=== PATIENT | female | born 1970 | race Two or more races ===

== ENCOUNTER 2018-03-24 12:19 | Observation (INO) | payer OTHER ==
--- NOTE | 2018-03-24 13:29 | PDOC ---
History of Present Illness - General Chief Complaint: Pain Stated Complaint: ABD PAIN Time Seen by Provider: 03/24/18 13:28 - History of Present Illness Initial Comments: 03/24/18 14:54 The patient is a 47-year-old female, with a past medical history of x3 , hypertrigylcerides and prediabetes, who presents to the ED with right lower quadrant pain that began yesterday evening. The patient was not able to stand up this morning due to the pain which prompted her to report to the ED. She denies having these symptoms in the past. She reports taking Naproxen at 5:00 PM yesterday with no relief of her symptoms. Patients last bowel movement was today and it was normal, not dark or bloody. She reports having regular periods and denies being sexually active for the last 2 years. She denies any vaginal discharge or vaginal bleeding. She denies any dysuria or frequency. Denies abd distention. The patient denies any fever, chills, nausea, vomiting, or diarrhea. Denies shortness of breath or chest pain. Allergies: Ketoconazole Past History - Past Medical History Allergies/Adverse Reactions: Allergies Allergy/AdvReac Type Severity Reaction Status Date / Time ketoconazole Allergy Rash Verified 03/24/18 12:37 Home Medications: Ambulatory Orders NK [No Known Home Medication] 05/23/16 COPD: No - Suicide/Smoking/Psychosocial Hx Smoking History: Never smoked Have you smoked in the past 12 months: No Information on smoking cessation initiated: No Hx Alcohol Use: No Drug/Substance Use Hx: No Substance Use Type: None Review of Systems - Review of Systems Comments:: 03/24/18 14:54 GENERAL/CONSTITUTIONAL: No fever or chills. No weakness. HEAD, EYES, EARS, NOSE AND THROAT: No change in vision. No ear pain or discharge. No sore throat. GASTROINTESTINAL: (+)Abdominal pain. No nausea, vomiting, diarrhea or constipation. GENITOURINARY: No dysuria, frequency, or change in urination. CARDIOVASCULAR: No chest pain or shortness of breath. RESPIRATORY: No cough, wheezing, or hemoptysis. MUSCULOSKELETAL: No joint or muscle swelling or pain. No neck or back pain. SKIN: No rash NEUROLOGIC: No headache, vertigo, loss of consciousness, or change in strength/ sensation. ENDOCRINE: No increased thirst. No abnormal weight change. HEMATOLOGIC/LYMPHATIC: No anemia, easy bleeding, or history of blood clots. ALLERGIC/IMMUNOLOGIC: No hives or skin allergy. *Physical Exam - Vital Signs Last Vital Signs Temp Pulse Resp BP Pulse Ox 98.6 F 73 16 103/68 100 03/24/18 12:20 03/24/18 12:20 03/24/18 12:20 03/24/18 12:20 03/24/18 12:20 - Physical Exam Comments: 03/24/18 14:54 GENERAL: Awake, alert, and fully oriented, in no acute distress HEAD: No signs of trauma EYES: PERRLA, EOMI, sclera anicteric, conjunctiva clear ENT: Auricles normal inspection, hearing grossly normal, nares patent, oropharynx clear without exudates. Moist mucosa NECK: Normal ROM, supple, no lymphadenopathy, JVD, or masses LUNGS: Breath sounds equal, clear to auscultation bilaterally. No wheezes, and no crackles HEART: Regular rate and rhythm, normal S1 and S2, no murmurs, rubs or gallops ABDOMEN: (+)Right lower quadrant tenderness to palpation at McBurney's point. Soft, normoactive bowel sounds. No guarding, no rebound. No masses : (+)Mild right adnexal tenderness. No midline or left adnexal tenderness. No cmt. No vaginal discharge or blood in vault. EXTREMITIES: Normal range of motion, no edema. No clubbing or cyanosis. No cords , erythema, or tenderness BACK: No midline spinal tenderness in cervical/thoracic/lumbar region NEUROLOGICAL: Normal speech, cranial nerves intact, negative pronator drift, 5/ 5 strength in all 4 extremities, normal sensation to light touch in all 4 extremities, normal cerebellar exam, normal gait, normal reflexes and tone SKIN: Warm, Dry, normal turgor, no rashes or lesions noted. ED Treatment Course - LABORATORY CBC & Chemistry Diagram: 03/24/18 14:48 03/24/18 14:48 Medical Decision Making - Medical Decision Making 03/24/18 14:19 47yo F hx x3, pre-DM, hypertriglyceride presents to the ED with 24hrs of RLQ pain. Vitals unremarkable. Exam with +mcburney's point ttp, but also mild R adnexal ttp. No CMT or vaginal DC, pt has not been sexually active for 2 years. DDx includes but not limited to appendicitis vs ovarian cyst vs colitis vs enteritis. Plan: -labs -UPT -UA -CTAP -TVUS -pain control -dispo 03/24/18 19:01 Pt was marked in CT scan for 2 hours, however has not been scanned yet. Pt now in CT, to be scanned next. Labs thus far wnl, UA negative, UPT negative. Pt signed out to overnight attending for f/u on diagnostics, and for further management and disposition.
[2018-03-24] MEDS ORDERED: ACETAMINOPHEN 1000 MG/100 ML VIAL (NON FORMULARY) IVPB ONE (14:09)
[2018-03-24] MEDS ORDERED: ACETAMINOPHEN INJECTION 100 ML IVPB ONE (14:38)
[2018-03-24 14:59] LABS: EOS % 3.3 % (0-4.5); HEMATOCRIT 31.2 % (32.4-45.2); HEMOGLOBIN 10.2 GM/dL (10.7-15.3); LYMPH % 25.8 % (8-40); MCH 25.8 pg (25.7-33.7); MCHC 32.7 g/dl (32.0-36.0); MEAN CELL VOLUME 78.8 fl (80-96); MEAN PLT VOLUME 7.4 fl (7.5-11.1); MONO % 8.7 % (3.8-10.2); NEUT % 61.2 % (42.8-82.8); PLATELET COUNT 332 K/MM3 (134-434); RBC 3.96 M/mm3 (3.60-5.2); RDW 15.9 % (11.6-15.6); WHITE BLOOD COUNT 6.5 K/mm3 (4.0-10.0)
[2018-03-24 15:09] LABS: HCG,QUALITATIVE URINE NEGATIVE
[2018-03-24 15:14] LABS: URINE APPEARANCE CLEAR; URINE BILIRUBIN NEGATIVE (<2.0 mg/dL); URINE BLOOD NEGATIVE (NEGATIVE); URINE COLOR LTYELLOW; URINE GLUCOSE (UA) NEGATIVE (NEGATIVE); URINE KETONE NEGATIVE (NEGATIVE); URINE LEUK ESTERASE NEGATIVE (NEGATIVE); URINE NITRITE NEGATIVE (NEGATIVE); URINE PROTEIN NEGATIVE (NEGATIVE); URINE UROBILINOGEN NEGATIVE mg/dL (0.2-1.0)
[2018-03-24 15:25] LABS: ALBUMIN 3.6 g/dl (3.4-5.0); ANION GAP 7 (8-16); BLOOD UREA NITROGEN 21 mg/dL (7-18); CALCIUM 8.5 mg/dL (8.5-10.1); CHLORIDE 108 mmol/L (98-107); CO2 26 mmol/L (21-32); CREATININE 0.6 mg/dL (0.55-1.02); GLUCOSE,RANDOM 91 mg/dL (74-106); MAGNESIUM 2.5 mg/dL (1.8-2.4); POTASSIUM 3.9 mmol/L (3.5-5.1); SGOT/AST 14 U/L (15-37); SGPT/ALT 23 U/L (12-78); SODIUM 141 mmol/L (136-145)
[2018-03-24 15:27] LABS: ALK PHOS 69 U/L (45-117); BILIRUBIN,TOTAL 0.3 mg/dL (0.2-1.0); TOT PROT 7.2 g/dl (6.4-8.2)
[2018-03-24] MEDS ORDERED: morphine SULFATE 4 MG/ML VIAL ONE (15:36)
[2018-03-24] MEDS ORDERED: morphine CARPU-JECT 4 MG/1 ML DISP.SYRIN IVPUSH ONE (15:37)
[2018-03-24 15:44] LABS: LIPASE 275 U/L (73-393)
[2018-03-24 19:44] VITALS: BMI 29.2
--- NOTE | 2018-03-24 20:18 | PN ---
Teaching Attending Note ATTENDING PHYSICIAN STATEMENT I saw and evaluated the patient. I reviewed the resident's note and discussed the case with the resident. I agree with the resident's findings and plan as documented. SUBJECTIVE: The patient is a 47-year-old female, with a past medical history of x3 , hypertrigylcerides and prediabetes, who presents to the ED with right lower quadrant pain that began yesterday evening. The patient was not able to stand up this morning due to the pain which prompted her to report to the ED. She denies having these symptoms in the past. She reports taking Naproxen at 5:00 PM yesterday with no relief of her symptoms. Patients last bowel movement was today and it was normal, not dark or bloody. She reports having regular periods and denies being sexually active for the last 2 years. She denies any vaginal discharge or vaginal bleeding. She denies any dysuria or frequency. Denies abd distention. OBJECTIVE: Vital Signs Period Temp Pulse Resp BP Sys/Henriquez Pulse Ox Last 24 Hr 97.9 F-98.6 F 65-73 16-18 103-114/68-75 100 HEENT: No Jaundice, eye redness or discharge, PERRLA, EOMI. Normocephalic, atraumatic. External ears are normal and hearing is grossly intact. No nasal discharge. Neck: Supple, nontender. No palpable adenopathy or thyromegaly. No JVD Chest: Good effort. Clear to auscultation and percussion. Heart: Regular. No S3, rub or murmur Abdomen: Not distended, soft, nontender and no HSM. No rebound or guarding. Normoactive bowel sounds. Ext: Peripheral pulses intact. No leg edema. Skin: Warm and dry. No petechiae, rash or ecchymosis. Neuro: Alert. Oriented x3. CN 2-12 grossly intact. Sensation grossly intact in all four extremities and DTR are symmetric. Home Medications Medication Instructions Recorded NK [No Known Home Medication] 05/23/16 Abnormal Lab Results 03/24/18 03/24/18 14:48 14:48 Hgb 10.2 L Hct 31.2 L MCV 78.8 L RDW 15.9 H MPV 7.4 L Chloride 108 H Anion Gap 7 L BUN 21 H Magnesium 2.5 H AST 14 L ASSESSMENT AND PLAN: DVT prophylaxis - Heparin 5000u sq tid Advance directives - Full code
[2018-03-25] MEDS ORDERED: MORPHINE SULFATE 2 MG/ML VIAL IM ONE (00:37)
[2018-03-25] MEDS ORDERED: ONDANSETRON 4 MG/2 ML VIAL IVPUSH PRN (00:44)
[2018-03-25] MEDS ORDERED: MORPHINE SULFATE 2 MG/ML VIAL IVPUSH PRN ×2 (00:44→15:16)
[2018-03-25] MEDS ORDERED: ACETAMINOPHEN 325 MG TABLET (FP) PO PRN (00:44)
[2018-03-25] MEDS: SODIUM CHLORIDE 1,000 ML IV SCH (00:55)
--- NOTE | 2018-03-25 00:58 | PN ---
Teaching Attending Note Name of Resident: Andrey Baker ATTENDING PHYSICIAN STATEMENT I saw and evaluated the patient. I reviewed the resident's note and discussed the case with the resident. I agree with the resident's findings and plan as documented. SUBJECTIVE: Patient is a 47 year old woman with a past medical history of x3, hypertrigylcerides and prediabetes, who presents to the ED with right lower quadrant pain that began yesterday evening. The patient was not able to stand up this morning due to the pain which prompted her to report to the ED. She denies having these symptoms in the past. She reports taking Naproxen at 5:00 PM yesterday with no relief of her symptoms. Patients last bowel movement was today and it was normal, not dark or bloody. She reports having regular periods and denies being sexually active for the last 2 years. She denies any vaginal discharge or vaginal bleeding. She denies any dysuria or frequency. Denies abd distention. OBJECTIVE: Vital Signs Period Temp Pulse Resp BP Sys/Henriquez Pulse Ox Last 24 Hr 97.6 F-98.6 F 62-73 16-18 102-114/64-75 100-100 HEENT: No Jaundice, eye redness or discharge, PERRLA, EOMI. Normocephalic, atraumatic. External ears are normal and hearing is grossly intact. No nasal discharge. Neck: Supple, nontender. No palpable adenopathy or thyromegaly. No JVD Chest: Good effort. Clear to auscultation and percussion. Heart: Regular. No S3, rub or murmur Abdomen: Not distended, soft, RLQ tenderness and no HSM. No rebound or guarding. Normoactive bowel sounds. Ext: Peripheral pulses intact. Non pitting leg edema. Skin: Warm and dry. No petechiae, rash or ecchymosis. Neuro: Alert. Oriented x3. CN 2-12 grossly intact. Sensation grossly intact in all four extremities and DTR are symmetric. Current Medications Generic Name Dose Route Start Last Admin Trade Name Freq PRN Reason Stop Dose Admin Acetaminophen 650 mg 03/25/18 00:44 Tylenol - PO Q4H PRN PAIN LEVEL 1-5 Sodium Chloride 1,000 mls @ 75 mls/hr 03/25/18 00:45 03/25/18 00:55 Normal Saline - IV 75 mls/hr ASDIR KENDRA Administration Morphine Sulfate 2 mg 03/25/18 00:44 Morphine Sulfate IVPUSH 03/26/18 00:43 Q4H PRN PAIN LEVEL 6-10 Ondansetron HCl 4 mg 03/25/18 00:44 Zofran Injection IVPUSH Q6H PRN NAUSEA Home Medications Medication Instructions Recorded NK [No Known Home Medication] 05/23/16 Abnormal Lab Results 03/24/18 03/24/18 14:48 14:48 Hgb 10.2 L Hct 31.2 L MCV 78.8 L RDW 15.9 H MPV 7.4 L Chloride 108 H Anion Gap 7 L BUN 21 H Magnesium 2.5 H AST 14 L ASSESSMENT AND PLAN: 1. Abdominal pain - CT shows hepatomegaly with left ovarian cysts and mildly thickened endometrium. Ovarian torsion or rupture of ovarian cyst is most lileky cause of pain. Transvaginal ultrasound did not show any evidence of appendicitis. Will continue morphine for pain control and consult GI and CORPORATE TRAVEL COORDINATOR. 2. Low MCV anemia - Will do iron studies and serial stool guaiac and treat accordingly. Repeat serum Mg level. 3. DVT prophylaxis - Heparin 5000u sq tid 4. Advance directives - Full code
[2018-03-25] MEDS ORDERED: morphine CARPU-JECT 2 MG/1 ML DISP.SYRIN ONE (07:45)
[2018-03-25 08:56] LABS: ALBUMIN 3.2 g/dl (3.4-5.0); ALK PHOS 54 U/L (45-117); ANION GAP 8 (8-16); BILIRUBIN,TOTAL 0.4 mg/dL (0.2-1.0); BLOOD UREA NITROGEN 19 mg/dL (7-18); CALCIUM 7.9 mg/dL (8.5-10.1); CHLORIDE 109 mmol/L (98-107); CO2 23 mmol/L (21-32); CREATININE 0.5 mg/dL (0.55-1.02); GLUCOSE,RANDOM 82 mg/dL (74-106); MAGNESIUM 2.3 mg/dL (1.8-2.4); PHOSPHOROUS 3.4 mg/dL (2.5-4.9); POTASSIUM 3.9 mmol/L (3.5-5.1); SGOT/AST 11 U/L (15-37); SGPT/ALT 20 U/L (12-78); SODIUM 140 mmol/L (136-145); TOT PROT 6.4 g/dl (6.4-8.2)
[2018-03-25 09:02] LABS: BASO % 0.9 % (0-2.0); EOS % 3.7 % (0-4.5); HEMATOCRIT 29.9 % (32.4-45.2); HEMOGLOBIN 9.6 GM/dL (10.7-15.3); LYMPH % 25.1 % (8-40); MCH 25.3 pg (25.7-33.7); MCHC 32.1 g/dl (32.0-36.0); MEAN CELL VOLUME 78.7 fl (80-96); MEAN PLT VOLUME 7.5 fl (7.5-11.1); MONO % 9.6 % (3.8-10.2); NEUT % 60.7 % (42.8-82.8); PLATELET COUNT 271 K/MM3 (134-434); RDW 15.6 % (11.6-15.6); WHITE BLOOD COUNT 5.5 K/mm3 (4.0-10.0)
[2018-03-25 09:05] LABS: ACTIVATED PTT 30.7 SECONDS (26.9-34.4); INR 1.15 (0.82-1.09)
[2018-03-25] MEDS ORDERED: MORPHINE SULFATE 10 MG/1 ML *VIAL IVPUSH PRN (12:54)
--- NOTE | 2018-03-25 15:22 | CON.OBG ---
Consult Consult Specialty:: siphoner Referred by:: Aguila De La Torre Reason for Consultation:: RLQ pain - History of Present Illness Chief Complaint: 47 yrs , LMP 02/28/18,, presents in the ER with Ac Onset rlq pain since 03/23/18 night , not relieved effectively by Po Naproxen. UCG neg, Pelvic US , ut 9x1.07cm.EM 1.9 cm Rt side ovary not visualised . Lt ovary follicular cyst 2x1.5 cm , no free fluid in pelvis. 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 with naproxen not much reief felt, she went to [facility], she was referred to ER . Pt presently is feeling better after medication, morphine, but drowsy. Mest Hx : cycles reg 28-35 days cycle, no pain , except leg aches & breast tenderness during periods OB Hx : G1 1995 [place] [facility] [place] G3 2001 Repeat C/Sec in [place] G4 2004 Repeat C/s + BTL in [place] currently not sexually active for 2 yrs Last pap 2018 at [facility] -- normal as per Pt STD : none now , ? 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 No: HTN, Murmur Pulmonary: No: Asthma Gastrointestinal: No: Ascites, Constipation, Gastritis, GERD Hepatobiliary: No: Cholelithiasis Renal/: Yes: Other (no urine symptoms now ). No: UTI Reproductive: No: Fibroids, PID, Polycystic Ovary Syndrome, Postmenopausal ...LMP: 02/28/18 ...: No (ucg neg ) ...: 4 ...Para: 4 Heme/Onc: Yes: Anemia Infectious Disease: Yes: Other (declines except vericusae in 1995 ) Psych: No: Addictions, Anxiety, Bipolar, Depression Rheumatology: No: Fibromyalgia - Past Surgical History Past Surgical History: Yes: (1995primary c/s, 2001, repeat c/s , 2003 Rc/s BTL ) - Alcohol/Substance Use Hx Alcohol Use: No History of Substance Use: reports: None - Smoking History Smoking history: Never smoked Have you smoked in the past 12 months: No Home Medications - Allergies Allergies/Adverse Reactions: Allergies Allergy/AdvReac Type Severity Reaction Status Date / Time ketoconazole Allergy Rash Verified 03/24/18 12:37 - Home Medications Home Medications: Ambulatory Orders NK [No Known Home Medication] 05/23/16 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 No: CVA Tenderness - Left, CVA Tenderness - Right Pelvis: Yes: WNL. No: Tenderness External Genitalia: Yes: Normal Internal Exam Deferred: Yes Vaginal Exam: Yes: Normal, Discharge (normal white discharge) Cervix: Yes: Normal. No: Cerv Motion Tenderness Uterus: Yes: Normal, Firm, Retroverted. No: Tender Adnexa: Normal: Bilateral, Not Palpable: Bilateral Breast(s): Yes: WNL. No: Mass Extremities: No: Calf Tenderness Edema: No Integumentary: Yes: Incision (old subumblical midline scar , no ventral hernia) Neurological: Yes: WNL, Alert, Oriented ...Motor Strength: WNL Psychiatric: Yes: WNL Labs: CBC, BMP 03/25/18 07:11 03/25/18 06:00 Laboratory Tests 03/24/18 03/25/18 14:48 06:00 AST 11 L ALT 20 Ur Leukocyte Esterase Negative Urine HCG, Qual Negative Problem List - Problems (1) RLQ abdominal pain Code(s): R10.31 - RIGHT LOWER QUADRANT PAIN Assessment/Plan 47 yrs , lmp 02/28/18, s/p ac onset RLQ pain , pelvic US & Ct scan neg thicken em is due to premenstural em , possiblity of follicular cystv rupture can not be riuled out , otherwise I do not find any gynecological cause in her . pelvic adhesions due to previous c/s x3 are unlikely , in that case she would have chr , pain . In my opinion morphine should be d/clark , give po meds for pain control.
--- NOTE | 2018-03-25 15:50 | PN ---
Teaching Attending Note Name of Resident: Allan Dawson ATTENDING PHYSICIAN STATEMENT I saw and evaluated the patient. I reviewed the resident's note and discussed the case with the resident. I agree with the resident's findings and plan as documented. SUBJECTIVE:c/o RLQ pain has some relief with pain medication but continues to have pain. no similar episodes in the past. dneies Cp, SOB, fever, chills, N/v/C /D. OBJECTIVE: Last Vital Signs Temp Pulse Resp BP Pulse Ox 98.4 F 68 18 104/63 100 03/25/18 14:42 03/25/18 14:42 03/25/18 14:42 03/25/18 14:42 03/25/18 08:44 General resting comfortable asleep in bed, when awoken starts crying out in pain CV S1 S2 RRR no murmur/rub/gallop Lungs CTA B/L no wheezing/rales/rhonchi Abdomen soft NT/ND normal BS. neg mcburny point. neg rovsing sign ASSESSMENT AND PLAN: 47yo F with PMH pre-DM, hypertriglyceridemia with csection x3 and tubal ligation presenting with RLQ pain 1. RLQ pain- high suspicion for ruptured ovarian cyst. CT abdomen/pelvis negative for acute pathology. TVUS showing multiple L ovarian cysts however R ovary can not be visualized. thickened endoemtrial stripe likelihood of nearing menses. pt states her pain is uncontrolled but seen resting comfortable when arriving in the room. as per RN has been resting comfortable and sleeping all day and requests pain meds when she enters the room and does not call for it. will advance diet. SUPPLIER ENGINEER and GI consulted 2. Anemia- Hgb stable. no signs of active bleeding. check iron studies 3. DVT ppx- EAM 4. d/c planning in the AM
--- NOTE | 2018-03-25 16:59 | CON.GI ---
Consult Consult Specialty:: GI Reason for Consultation:: RLQ pain x 3 days - History of Present Illness History of Present Illness: Chart reviewed. Events noted. A 47F with RLQ pain and urge to urinate on ambulation and deep palpation x 3 days. Unrelated to diet, fasting. No dysphagia , odynophagia, jaundice, dyspepsia, epigasric, RUQ pain, melena, hematochezia. Rashes. History of 3 C-sections in [place]. LMP [address] - ovarial cysts/ folicles. R. adnexia tendernes on pelvic exam in ED. No fever, chills, nausea, vomiting, changes in bowels. No GI personal, or family history. 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 No: HTN, Murmur Pulmonary: No: Asthma Gastrointestinal: No: Ascites, Constipation, Gastritis, GERD Hepatobiliary: No: Cholelithiasis Renal/: Yes: Other (no urine symptoms now ). No: UTI ...LMP: 02/28/18 ...: No (ucg neg ) Infectious Disease: Yes: Other (declines except vericusae in 1995 ) Psych: No: Addictions, Anxiety, Bipolar, Depression Rheumatology: No: Fibromyalgia - Past Surgical History Past Surgical History: Yes: (1995primary c/s, 2001, repeat c/s , 2003 Rc/s BTL ) - Alcohol/Substance Use Hx Alcohol Use: No History of Substance Use: reports: None - Smoking History Smoking history: Never smoked Have you smoked in the past 12 months: No Home Medications - Allergies Allergies/Adverse Reactions: Allergies Allergy/AdvReac Type Severity Reaction Status Date / Time ketoconazole Allergy Rash Verified 03/24/18 12:37 - Home Medications Home Medications: Ambulatory Orders NK [No Known Home Medication] 05/23/16 Family Disease History - Family Disease History Family History: Unremarkable Review of Systems Findings/Remarks: as per HPI, H&P ED Physical Exam-GI Vital Signs: Vital Signs Temperature 98.4 F 03/25/18 14:42 Pulse Rate 68 03/25/18 14:42 Respiratory Rate 18 03/25/18 14:42 Blood Pressure 104/63 03/25/18 14:42 O2 Sat by Pulse Oximetry (%) 100 03/25/18 08:44 Constitutional: Yes: Well Nourished, No Distress, Calm Eyes: Yes: Conjunctiva Clear HENT: Yes: Atraumatic Neck: Yes: Supple Cardiovascular: Yes: Regular Rate and Rhythm Respiratory: Yes: Regular Gastrointestinal Inspection: No: Distention ...Auscultate: Yes: Normoactive Bowel Sounds ...Palpate: Yes: Soft, Other (RLQ/suprapubic tenderness on deep palpation. Worse on R leg raising). No: Firm/Rigid, Guarding, Mass, Tenderness, Tenderness , Epigastium, Tenderness, Rebound Neurological: Yes: Alert, Oriented Labs: CBC, BMP 03/25/18 07:11 03/25/18 06:00 INR, PTT INR 1.15 (0.82-1.09) H 03/25/18 06:38 Laboratory Last Values WBC 5.5 K/mm3 (4.0-10.0) 03/25/18 07:11 RBC 3.80 M/mm3 (3.60-5.2) 03/25/18 07:11 Hgb 9.6 GM/dL (10.7-15.3) L 03/25/18 07:11 Hct 29.9 % (32.4-45.2) L 03/25/18 07:11 MCV 78.7 fl (80-96) L 03/25/18 07:11 MCH 25.3 pg (25.7-33.7) L 03/25/18 07:11 MCHC 32.1 g/dl (32.0-36.0) 03/25/18 07:11 RDW 15.6 % (11.6-15.6) 03/25/18 07:11 Plt Count 271 K/MM3 (134-434) 03/25/18 07:11 MPV 7.5 fl (7.5-11.1) 03/25/18 07:11 Absolute Neuts (auto) 3.3 # 03/25/18 07:11 Neutrophils % 60.7 % (42.8-82.8) 03/25/18 07:11 Lymphocytes % 25.1 % (8-40) 03/25/18 07:11 Monocytes % 9.6 % (3.8-10.2) 03/25/18 07:11 Eosinophils % 3.7 % (0-4.5) 03/25/18 07:11 Basophils % 0.9 % (0-2.0) 03/25/18 07:11 Nucleated RBC % 0 % (0-0) 03/25/18 07:11 PT with INR 13.00 SEC (9.7-13.0) 03/25/18 06:38 INR 1.15 (0.82-1.09) H 03/25/18 06:38 PTT (Actin FS) 30.7 SECONDS (26.9-34.4) 03/25/18 06:38 Sodium 140 mmol/L (136-145) 03/25/18 06:00 Potassium 3.9 mmol/L (3.5-5.1) 03/25/18 06:00 Chloride 109 mmol/L (98-107) H 03/25/18 06:00 Carbon Dioxide 23 mmol/L (21-32) 03/25/18 06:00 Anion Gap 8 (8-16) 03/25/18 06:00 BUN 19 mg/dL (7-18) H 03/25/18 06:00 Creatinine 0.5 mg/dL (0.55-1.02) L 03/25/18 06:00 Creat Clearance w eGFR > 60 (>60) 03/25/18 06:00 Random Glucose 82 mg/dL (74-106) 03/25/18 06:00 Calcium 7.9 mg/dL (8.5-10.1) L 03/25/18 06:00 Phosphorus 3.4 mg/dL (2.5-4.9) 03/25/18 06:00 Magnesium 2.3 mg/dL (1.8-2.4) 03/25/18 06:00 Total Bilirubin 0.4 mg/dL (0.2-1.0) D 03/25/18 06:00 AST 11 U/L (15-37) L 03/25/18 06:00 ALT 20 U/L (12-78) 03/25/18 06:00 Alkaline Phosphatase 54 U/L (45-117) 03/25/18 06:00 Total Protein 6.4 g/dl (6.4-8.2) 03/25/18 06:00 Albumin 3.2 g/dl (3.4-5.0) L 03/25/18 06:00 Lipase 275 U/L (73-393) 03/24/18 14:48 Urine Color Ltyellow 03/24/18 14:48 Urine Appearance Clear 03/24/18 14:48 Urine pH 7.0 (5.0-8.0) 03/24/18 14:48 Ur Specific [place] 1.017 (1.001-1.035) 03/24/18 14:48 Urine Protein Negative (NEGATIVE) 03/24/18 14:48 Urine Glucose (UA) Negative (NEGATIVE) 03/24/18 14:48 Urine Ketones Negative (NEGATIVE) 03/24/18 14:48 Urine Blood Negative (NEGATIVE) 03/24/18 14:48 Urine Nitrite Negative (NEGATIVE) 03/24/18 14:48 Urine Bilirubin Negative (<2.0 mg/dL) 03/24/18 14:48 Urine Urobilinogen Negative mg/dL (0.2-1.0) 03/24/18 14:48 Ur Leukocyte Esterase Negative (NEGATIVE) 03/24/18 14:48 Urine HCG, Qual Negative 03/24/18 14:48 Blood Type O POSITIVE 03/24/18 16:30 Antibody Screen Negative 03/24/18 16:30 Imaging - Results Cat Scan: Report Reviewed Ultrasound: Report Reviewed Problem List - Problems (1) RLQ abdominal pain Code(s): R10.31 - RIGHT LOWER QUADRANT PAIN Assessment/Plan Given the exam and the imaging, strongly suspect the symptoms to be of BALING 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 Recommend evaluation by BALING PRESS OPERATOR service
--- NOTE | 2018-03-25 21:03 | PN ---
Physical Exam: SUBJECTIVE: Patient seen and examined at bedside. Complains of RLQ pain. OBJECTIVE: Vital Signs Period Temp Pulse Resp BP Sys/Henriquez Pulse Ox Last 24 Hr 97 F-98.7 F 59-75 18-18 102-112/58-69 100-100 Gen: walking back to her bed from the bathroom. Visibly uncomfortable due to pain HEENT: NCAT, moist membranes Neck: supple, no jvd Cardio: rrr, normal s1s2, no m/r/g Pulm: cta b/l Abd: RLQ tenderness to deep palpation. Rosving's negative, obturator sign negative Ext: 2+ pulses, no edema Laboratory Results - last 24 hr 03/25/18 03/25/18 03/25/18 06:00 06:38 07:11 WBC 5.5 RBC 3.80 Hgb 9.6 L Hct 29.9 L MCV 78.7 L MCH 25.3 L MCHC 32.1 RDW 15.6 Plt Count 271 MPV 7.5 Absolute Neuts (auto) 3.3 Neutrophils % 60.7 Lymphocytes % 25.1 Monocytes % 9.6 Eosinophils % 3.7 Basophils % 0.9 Nucleated RBC % 0 PT with INR 13.00 INR 1.15 H PTT (Actin FS) 30.7 Sodium 140 Potassium 3.9 Chloride 109 H Carbon Dioxide 23 Anion Gap 8 BUN 19 H Creatinine 0.5 L Creat Clearance w eGFR > 60 Random Glucose 82 Calcium 7.9 L Phosphorus 3.4 Magnesium 2.3 Total Bilirubin 0.4 D AST 11 L ALT 20 Alkaline Phosphatase 54 Total Protein 6.4 Albumin 3.2 L Active Medications Generic Name Dose Route Start Last Admin Trade Name Rhettq PRN Reason Stop Dose Admin Acetaminophen 650 mg 03/25/18 00:44 Tylenol - PO Q4H PRN PAIN LEVEL 1-5 Sodium Chloride 1,000 mls @ 75 mls/hr 03/25/18 00:45 03/25/18 00:55 Normal Saline - IV 75 mls/hr ASDIR KENDRA Administration Morphine Sulfate 2 mg 03/25/18 15:16 Morphine Sulfate IVPUSH 03/26/18 12:53 Q4H PRN PAIN LEVEL 6-10 Ondansetron HCl 4 mg 03/25/18 00:44 Zofran Injection IVPUSH Q6H PRN NAUSEA ASSESSMENT/PLAN: Pt is a pleasant 47 y/o F with PMH pre-DM, HLD, s/p x 3 with tubal ligation who presented to the ED with acute RLQ pain. Pt is on obs. #RLQ pain -Pt had R adnexal tenderness in ED -Transvaginal U/S revealed left sided cysts and unclear R adnexa and thickened endometrial stripe -CTAP was unremarkable. Pt was -No WBC -afebrile -POLYGRAPH OPERATOR consulted: possible ruptured ovarian cyst -GI consulted: symptoms not likely from GI origin -Pain control #microcytic anemia -? 2/2 Fe deficiency -H&H stable -Fe studies #FEN -NS -lytes wnl -advance diet #PPx -ambulatory #Dispo -Obs for RLQ pain ? 2/2 ruptured ovarian cyst Allan Dawson MD PGY-1 IM Visit type - Emergency Visit Emergency Visit: No - New Patient This patient is new to me today: Yes Date on this admission: 03/25/18 - Critical Care Critical Care patient: No - Discharge Referral Referred to [facility] Med P.C.: No
[2018-03-26] MEDS: SODIUM CHLORIDE 1,000 ML IV SCH (01:02)
[2018-03-26] MEDS ORDERED: ACETAMINOPHEN 325 MG TABLET (FP) PO ONE (08:00)
[2018-03-26] MEDS ORDERED: oxyCODONE HCL 5 MG TABLET PO ONE (08:00)
[2018-03-26 08:09] LABS: HEMATOCRIT 31.5 % (32.4-45.2); HEMOGLOBIN 10.2 GM/dL (10.7-15.3); MCH 25.5 pg (25.7-33.7); MCHC 32.3 g/dl (32.0-36.0); MEAN PLT VOLUME 7.4 fl (7.5-11.1); PLATELET COUNT 280 K/MM3 (134-434); RBC 3.98 M/mm3 (3.60-5.2); RDW 15.5 % (11.6-15.6); WHITE BLOOD COUNT 6.4 K/mm3 (4.0-10.0)
--- NOTE | 2018-03-26 08:22 | PN ---
Physical Exam: SUBJECTIVE: Patient seen and examined at bedside. Pt still has pain. No other complaints. OBJECTIVE: Vital Signs Period Temp Pulse Resp BP Sys/Henriquez Pulse Ox Last 24 Hr 97 F-98.9 F 59-75 18-18 94-112/44-69 99-100 Gen: walking back to her bed from the bathroom. Visibly uncomfortable due to pain HEENT: NCAT, moist membranes Neck: supple, no jvd Cardio: rrr, normal s1s2, no m/r/g Pulm: cta b/l Abd: RLQ tenderness to deep palpation. Rosving's positive, obturator sign negative Ext: 2+ pulses, no edema Laboratory Results - last 24 hr 03/25/18 03/25/18 03/25/18 06:00 06:38 07:11 WBC 5.5 RBC 3.80 Hgb 9.6 L Hct 29.9 L MCV 78.7 L MCH 25.3 L MCHC 32.1 RDW 15.6 Plt Count 271 MPV 7.5 Absolute Neuts (auto) 3.3 Neutrophils % 60.7 Lymphocytes % 25.1 Monocytes % 9.6 Eosinophils % 3.7 Basophils % 0.9 Nucleated RBC % 0 PT with INR 13.00 INR 1.15 H PTT (Actin FS) 30.7 Sodium 140 Potassium 3.9 Chloride 109 H Carbon Dioxide 23 Anion Gap 8 BUN 19 H Creatinine 0.5 L Creat Clearance w eGFR > 60 Random Glucose 82 Calcium 7.9 L Phosphorus 3.4 Magnesium 2.3 Total Bilirubin 0.4 D AST 11 L ALT 20 Alkaline Phosphatase 54 Total Protein 6.4 Albumin 3.2 L 03/26/18 06:10 WBC 6.4 RBC 3.98 Hgb 10.2 L Hct 31.5 L MCV 79.0 L MCH 25.5 L MCHC 32.3 RDW 15.5 Plt Count 280 MPV 7.4 L Absolute Neuts (auto) Neutrophils % Lymphocytes % Monocytes % Eosinophils % Basophils % Nucleated RBC % PT with INR INR PTT (Actin FS) Sodium Potassium Chloride Carbon Dioxide Anion Gap BUN Creatinine Creat Clearance w eGFR Random Glucose Calcium Phosphorus Magnesium Total Bilirubin AST ALT Alkaline Phosphatase Total Protein Albumin Active Medications Generic Name Dose Route Start Last Admin Trade Name Freq PRN Reason Stop Dose Admin Acetaminophen 650 mg 03/25/18 00:44 03/26/18 00:59 Tylenol - PO 650 mg Q4H PRN Administration PAIN LEVEL 1-5 Sodium Chloride 1,000 mls @ 75 mls/hr 03/25/18 00:45 03/26/18 01:02 Normal Saline - IV 75 mls/hr ASDIR KENDRA Administration Ondansetron HCl 4 mg 03/25/18 00:44 Zofran Injection IVPUSH Q6H PRN NAUSEA ASSESSMENT/PLAN:
--- NOTE | 2018-03-26 09:55 | PN ---
Progress Note, Physician History of Present Illness: Still in pain, the same character and location. Not associated with nausea, vomiting, or diarrhea. Normal liver chemistry, bili, ALP. Tolerating reg. diet. - Current Medication List Current Medications: Active Medications Acetaminophen (Tylenol -) 650 mg PO Q4H PRN PRN Reason: PAIN LEVEL 1-5 Last Admin: 03/26/18 00:59 Dose: 650 mg Sodium Chloride (Normal Saline -) 1,000 mls @ 75 mls/hr IV ASDIR KENDRA Last Admin: 03/26/18 01:02 Dose: 75 mls/hr Ondansetron HCl (Zofran Injection) 4 mg IVPUSH Q6H PRN PRN Reason: NAUSEA - Objective Vital Signs: Vital Signs Temperature 98.8 F 03/26/18 05:00 Pulse Rate 66 03/26/18 05:00 Respiratory Rate 18 03/26/18 05:00 Blood Pressure 94/44 03/26/18 05:00 O2 Sat by Pulse Oximetry (%) 99 03/25/18 22:05 Constitutional: Yes: Well Nourished, Mild Distress Gastrointestinal: Yes: Soft, Other (suprapubic and RLQ tenderness) Labs: CBC, BMP 03/26/18 06:10 03/25/18 06:00 INR, PTT INR 1.15 (0.82-1.09) H 03/25/18 06:38 Laboratory Last Values WBC 6.4 K/mm3 (4.0-10.0) 03/26/18 06:10 RBC 3.98 M/mm3 (3.60-5.2) 03/26/18 06:10 Hgb 10.2 GM/dL (10.7-15.3) L 03/26/18 06:10 Hct 31.5 % (32.4-45.2) L 03/26/18 06:10 MCV 79.0 fl (80-96) L 03/26/18 06:10 MCH 25.5 pg (25.7-33.7) L 03/26/18 06:10 MCHC 32.3 g/dl (32.0-36.0) 03/26/18 06:10 RDW 15.5 % (11.6-15.6) 03/26/18 06:10 Plt Count 280 K/MM3 (134-434) 03/26/18 06:10 MPV 7.4 fl (7.5-11.1) L 03/26/18 06:10 Absolute Neuts (auto) 3.3 # 03/25/18 07:11 Neutrophils % 60.7 % (42.8-82.8) 03/25/18 07:11 Lymphocytes % 25.1 % (8-40) 03/25/18 07:11 Monocytes % 9.6 % (3.8-10.2) 03/25/18 07:11 Eosinophils % 3.7 % (0-4.5) 03/25/18 07:11 Basophils % 0.9 % (0-2.0) 03/25/18 07:11 Nucleated RBC % 0 % (0-0) 03/25/18 07:11 PT with INR 13.00 SEC (9.7-13.0) 03/25/18 06:38 INR 1.15 (0.82-1.09) H 03/25/18 06:38 PTT (Actin FS) 30.7 SECONDS (26.9-34.4) 03/25/18 06:38 Sodium 140 mmol/L (136-145) 03/25/18 06:00 Potassium 3.9 mmol/L (3.5-5.1) 03/25/18 06:00 Chloride 109 mmol/L (98-107) H 03/25/18 06:00 Carbon Dioxide 23 mmol/L (21-32) 03/25/18 06:00 Anion Gap 8 (8-16) 03/25/18 06:00 BUN 19 mg/dL (7-18) H 03/25/18 06:00 Creatinine 0.5 mg/dL (0.55-1.02) L 03/25/18 06:00 Creat Clearance w eGFR > 60 (>60) 03/25/18 06:00 Random Glucose 82 mg/dL (74-106) 03/25/18 06:00 Calcium 7.9 mg/dL (8.5-10.1) L 03/25/18 06:00 Phosphorus 3.4 mg/dL (2.5-4.9) 03/25/18 06:00 Magnesium 2.3 mg/dL (1.8-2.4) 03/25/18 06:00 Ferritin 5.4 ng/ml (6.9-282.5) L 03/26/18 06:10 Total Bilirubin 0.4 mg/dL (0.2-1.0) D 03/25/18 06:00 AST 11 U/L (15-37) L 03/25/18 06:00 ALT 20 U/L (12-78) 03/25/18 06:00 Alkaline Phosphatase 54 U/L (45-117) 03/25/18 06:00 Total Protein 6.4 g/dl (6.4-8.2) 03/25/18 06:00 Albumin 3.2 g/dl (3.4-5.0) L 03/25/18 06:00 Lipase 275 U/L (73-393) 03/24/18 14:48 Urine Color Ltyellow 03/24/18 14:48 Urine Appearance Clear 03/24/18 14:48 Urine pH 7.0 (5.0-8.0) 03/24/18 14:48 Ur Specific [place] 1.017 (1.001-1.035) 03/24/18 14:48 Urine Protein Negative (NEGATIVE) 03/24/18 14:48 Urine Glucose (UA) Negative (NEGATIVE) 03/24/18 14:48 Urine Ketones Negative (NEGATIVE) 03/24/18 14:48 Urine Blood Negative (NEGATIVE) 03/24/18 14:48 Urine Nitrite Negative (NEGATIVE) 03/24/18 14:48 Urine Bilirubin Negative (<2.0 mg/dL) 03/24/18 14:48 Urine Urobilinogen Negative mg/dL (0.2-1.0) 03/24/18 14:48 Ur Leukocyte Esterase Negative (NEGATIVE) 03/24/18 14:48 Urine HCG, Qual Negative 03/24/18 14:48 Blood Type O POSITIVE 03/24/18 16:30 Antibody Screen Negative 03/24/18 16:30 Problem List - Problems (1) RLQ abdominal pain Code(s): R10.31 - RIGHT LOWER QUADRANT PAIN Assessment/Plan [facility] evaluation note. Will monitor
--- NOTE | 2018-03-26 13:38 | PN ---
Teaching Attending Note Name of Resident: Allan Dawson ATTENDING PHYSICIAN STATEMENT I saw and evaluated the patient. I reviewed the resident's note and discussed the case with the resident. I agree with the resident's findings and plan as documented. SUBJECTIVE:pain has improved. denies Cp, SOB, fever, chills, N/V/C/D, menses has not yet begun. no vaginal discharge OBJECTIVE: Last Vital Signs Temp Pulse Resp BP Pulse Ox 99.4 F 64 18 106/59 99 03/26/18 09:00 03/26/18 09:00 03/26/18 09:00 03/26/18 09:00 03/26/18 08:00 General NAD Abdomen soft NT/ND normal BS. neg mcburny point. neg rovsing sign ASSESSMENT AND PLAN: 47yo F with PMH pre-DM, hypertriglyceridemia with csection x3 and tubal ligation presenting with RLQ pain 1. RLQ pain- high suspicion for ruptured ovarian cyst vs premenstural syndrome. pain has improved. can continue with tyelnol at home prn pain. f/u with [facility] after menses. can repeat U/s to further evaluate. 2. severe iron def Anemia- Hgb stable. ferritin < 10. will give venofer x1. then start oral iron supplements. counseled on side effects of iron. will need repeat studies in 3 months. 3. DVT ppx- EAM 4. d/c home
[2018-03-26] MEDS ORDERED: IRON SUCROSE INJECTION 200 MG in SODIUM CHLORIDE 90 ML IVPB ONE (15:00)
[2018-03-26 15:36] VITALS: BP 104/52; PULSE 74; TEMP 99.2
--- NOTE | 2018-03-26 18:46 | DS ---
Physical Exam: SUBJECTIVE: Patient seen and examined at bedside. Pt still has pain. No other complaints. OBJECTIVE: Vital Signs Period Temp Pulse Resp BP Sys/Henriquez Pulse Ox Last 24 Hr 98.7 F-99.4 F 64-74 18-18 94-106/44-59 99-99 PHYSICAL EXAM Gen: walking back to her bed from the bathroom. Visibly uncomfortable due to pain HEENT: NCAT, moist membranes Neck: supple, no jvd Cardio: rrr, normal s1s2, no m/r/g Pulm: cta b/l Abd: RLQ tenderness to deep palpation. Rosving's positive, obturator sign negative Ext: 2+ pulses, no edema LABS Laboratory Results - last 24 hr 03/26/18 03/26/18 06:10 06:10 WBC 6.4 RBC 3.98 Hgb 10.2 L Hct 31.5 L MCV 79.0 L MCH 25.5 L MCHC 32.3 RDW 15.5 Plt Count 280 MPV 7.4 L Ferritin 5.4 L HOSPITAL COURSE: Date of Admission:03/24/18 Date of Discharge: 03/26/18 Pt is a pleasant 47 y/o F with PMH pre-DM, HLD, s/p x 3 with tubal ligation who presented to the ED with acute RLQ pain. Pt is on obs. RLQ pain was evaluated in the ED. Pt had R adnexal tenderness in ED. Transvaginal U/S revealed left sided cysts and unclear R adnexa and thickened endometrial stripe. CTAP was unremarkable. No leukocytosis was noted, and she was afebrile. SENIOR RUBY DEVELOPER was consulted and suggested possible ruptured ovarian cyst vs possible GI source. GI was also consulted and felt symptoms were not likely from GI origin. Pain was controlled. It was explained to the patient that her pain was most likely 2/2 either menstrual pain or ruptured ovarian cyst. She was given instructions to follow up out pt with either her own FINANCIAL AID ADVISOR or the one that saw her in the hospital ( Dr. Daniels). Pt was found to have microcytic anemia. H&H were stable throughout her stay. She was asymptomatic. Fe revealed significant Fe deficiency. She was given supplemental IV Fe and PO to take home. Pt is stable for d/c home. Minutes to complete discharge: 30 Discharge Summary Reason For Visit: ABDOMINAL PAIN Condition: Good - Instructions Diet, Activity, Other Instructions: You were in the hospital because of abdominal pain. It is possible that you have an ovarian cyst which ruptured. You were also found to be anemia which is likely due to you are iron deficient. You received a dose of IV iron in the hospital. You are being sent home on iron supplements. Side effect include consipation and black stools. ensure you are having daily bowel movements to ensure you dont become constipated. DO not take on an empty stomach. Have your iron studies repeated in 3 months. You need to follow up with your own FINANCIAL AID ADVISOR doctor, or you can follow up with the FINANCIAL AID ADVISOR (Dr. Daniels) that saw you in the hospital. Please make sure you take your medications as directed. Referrals: Mila Sousa MD [Staff Physician] - 1 Week Disposition: HOME - Home Medications Comprehensive Discharge Medication List: Ambulatory Orders Acetaminophen [Tylenol .Regular Strength -] 650 mg PO Q4H PRN #20 tablet MDD 4000 03/26/18 Ferrous Sulfate [Feosol] 325 mg PO BID #60 tablet 03/26/18 This patient is new to me today: No Emergency Visit: No Critical Care patient: No - Discharge Referral Referred to [facility] Med P.C.: No
[2018-03-28 06:37] LABS: SERUM IRON SATURATION 7 % (15-55); TOTAL IRON BINDING CAPACITY 411 ug/dL (250-450); UIBC 384 ug/dL (131-425)
== END 2018-03-26 17:43 | disposition home or self-care (01) ==
LOC: JER 12:19 → JERBED 19:00 → J8W 22:25
PROVIDERS: ADMIT Internal Medicine; ATTEND Internal Medicine
PROC: 3E033NZ Introduction of Analgesics, Hypnotics, Sedatives into Peripheral Vein, Percutaneous Approach (ICD-10-PCS; principal; 2018-03-24)
PROC: 3E013NZ Introduction of Analgesics, Hypnotics, Sedatives into Subcutaneous Tissue, Percutaneous Approach (ICD-10-PCS; 2018-03-24)
DX: R10.31 Right lower quadrant pain (principal); D50.9 Iron deficiency anemia, unspecified; E78.1 Pure hyperglyceridemia; R73.03 Prediabetes
CPT/HCPCS: 36415; 74177-TC; 76830-TC; 80053; 81003; 82728; 83540; 83550; 83690; 83735; 84100; 84703; 85025; 85027; 85610; 85730; 86850; 86900; 86901; 87086; 96365; 96372; 96375; 96376; 99284-25; G0378; J0131; J1756; J7030

== ENCOUNTER 2022-09-05 16:46 | Emergency (ER) | payer OTHER ==
[2022-09-05 17:09] VITALS: BP 117/71; PULSE 70; RESP 18; TEMP 98.1; BMI 31.1
[2022-09-05] MEDS ORDERED: ACETAMINOPHEN 500 MG TABLET (FP) PO ONE (17:46)
[2022-09-05] MEDS ORDERED: KETOROLAC TROMETHAMINE 15 MG/ML VIAL IM ONE (17:53)
[2022-09-05] MEDS ORDERED: CEPHALEXIN MONOHYDRATE 500 MG CAPSULE (UD) PO ONE (17:53)
[2022-09-05] MEDS ORDERED: ACETAMINOPHEN 325 MG TABLET (FP) ONE (17:55)
[2022-09-05] MEDS ORDERED: CEPHALEXIN MONOHYDRATE 500 MG CAPSULE (UD) ONE (17:55)
[2022-09-05] MEDS ORDERED: KETOROLAC TROMETHAMINE 30 MG/1 ML VIAL ONE (17:55)
== END 2022-09-05 19:07 | disposition home or self-care (01) ==
LOC: JERFT 16:46
PROC: 3E023GC Introduction of Other Therapeutic Substance into Muscle, Percutaneous Approach (ICD-10-PCS; principal; 2022-09-05)
DX: N61.1 Abscess of the breast and nipple (principal)
CPT/HCPCS: 99284-25